=== PATIENT | female | born 1960 | race Caucasian/White ===

== ENCOUNTER → 2017-01-13 | Outpatient (CLI) | payer OTHER | LOC: MC.RAD 11:29 | DX: Z12.31 Encounter for screening mammogram for malignant neoplasm of breast (principal); N64.89 Other specified disorders of breast ==

== ENCOUNTER → 2017-04-20 | Outpatient (CLI) | payer OTHER | LOC: COL.VAS 09:00 | DX: I87.2 Venous insufficiency (chronic) (peripheral) (principal) ==

== ENCOUNTER 2017-08-18 08:56 | Outpatient (CLI) | payer OTHER ==
[2017-08-18] VITALS (10 sets, daily range): BP systolic 101–137; BP diastolic 46–94; PULSE 60–90; TEMP 97.4
[~2017-08-18] VITALS: Ht 167.6 cm; Wt 127.3 kg
[2017-08-18] MEDS ORDERED: PAXIL 30MG30 MG PO (09:28)
[2017-08-18] MEDS ORDERED: PROAIR HFA0.09 MG/AC IH (09:29)
[2017-08-18] MEDS ORDERED: ZYLOPRIM 100MG100 MG PO (09:32)
[2017-08-18] MEDS ORDERED: ULTRAM 50MG TAB50 MG PO (09:32)
[2017-08-18] MEDS ORDERED: XANAX 0.5MG0.5 MG PO (09:33)
[2017-08-18] MEDS ORDERED: ZYRTEC 10MG10 MG PO (09:34)
[2017-08-18] MEDS ORDERED: CRESTOR 10MG10 MG PO (09:35)
[2017-08-18] MEDS ORDERED: GLUCOTROL 5M5 MG/TAB PO (09:36)
[2017-08-18] MEDS ORDERED: HCTZ 25MG TAB25 MG PO (09:40)
[2017-08-18] MEDS ORDERED: NORCO 325 MG-51 TAB PO (09:40)
[2017-08-18] MEDS ORDERED: COZAAR 50MG50 MG/TAB PO (09:41)
[2017-08-18] MEDS ORDERED: SYNTHROID0.112 MG/T PO (09:41)
[2017-08-18] MEDS ORDERED: MAXALT10 MG PO (09:42)
[2017-08-18] MEDS ORDERED: MOBIC 7.5MG7.5 MG PO (09:43)
[2017-08-18] MEDS ORDERED: DOXYCYCLINE HY100 MG PO (15:57)
== END 2017-08-18 16:22 | disposition home or self-care (01) ==
LOC: COL.VAS 08:56
DX: I83.891 Varicose veins of right lower extremity with other complications (principal)
CPT/HCPCS: C1769; C1894; J0171; J2250; J3010; J3370; J7040; J7050; J7120

== ENCOUNTER → 2017-08-25 | Outpatient (CLI) | payer OTHER ==
[~2017-08-25] MED LIST: COZAAR 50MG50 MG/TAB PO; CRESTOR 10MG10 MG PO; DOXYCYCLINE HY100 MG PO; GLUCOTROL 5M5 MG/TAB PO; HCTZ 25MG TAB25 MG PO; MAXALT10 MG PO; MOBIC 7.5MG7.5 MG PO; NORCO 325 MG-51 TAB PO; PAXIL 30MG30 MG PO; PROAIR HFA0.09 MG/AC IH; SYNTHROID0.112 MG/T PO; ULTRAM 50MG TAB50 MG PO; XANAX 0.5MG0.5 MG PO; ZYLOPRIM 100MG100 MG PO; ZYRTEC 10MG10 MG PO
== END ==
LOC: COL.VAS 07:57
DX: I82.4Z1 Acute embolism and thrombosis of unspecified deep veins of right distal lower extremity (principal); Z98.890 Other specified postprocedural states

== ENCOUNTER → 2018-02-26 | Outpatient (CLI) | payer OTHER | LOC: MC.RAD 10:56 | DX: Z12.31 Encounter for screening mammogram for malignant neoplasm of breast (principal) ==

== ENCOUNTER → 2019-03-04 | Outpatient (CLI) | payer OTHER | LOC: MC.RAD 07:54 | DX: Z12.31 Encounter for screening mammogram for malignant neoplasm of breast (principal) ==

== ENCOUNTER → 2020-10-07 | Outpatient (CLI) | payer BC | LOC: MC.RAD 09-15 10:45 | DX: Z12.31 Encounter for screening mammogram for malignant neoplasm of breast (principal) ==

== ENCOUNTER → 2022-03-24 | Outpatient (CLI) | payer BC | LOC: COL.RAD 07:52 | DX: K76.0 Fatty (change of) liver, not elsewhere classified (principal); M47.816 Spondylosis without myelopathy or radiculopathy, lumbar region; M43.16 Spondylolisthesis, lumbar region; R31.29 Other microscopic hematuria; Z90.49 Acquired absence of other specified parts of digestive tract | CPT/HCPCS: Q9967 ==

== ENCOUNTER → 2022-06-08 | Outpatient (CLI) | payer BC ==
[2022-06-08 15:46] LABS: HEMATOCRIT 40.5 % (37.0-47.0); HEMOGLOBIN 13.4 g/dl (12.5-16.0); MEAN CELL VOLUME 86 fl (80.0-100.0); MEAN CORPUSCULAR HEMOGLOBIN 28 pg (27-31); MEAN CORPUSCULAR HGB CONC 33 g/dl (33.0-37.0); MEAN PLATELET VOLUME 10.7 fl (7.4-10.4); PLATELET COUNT 259 K/mm3 (130-400); RED BLOOD COUNT 4.72 M/mm3 (4.10-5.30); REDCELL DISTRIBUTION WIDTH-CV 13.9 % (11.5-14.5)
[2022-06-08 16:00] LABS: ALBUMIN 4.3 gm/dL (3.4-4.8); BILIRUBIN,TOTAL 0.6 mg/dL (0.2-1.2); CALCIUM 9.7 mg/dL (8.4-10.2); CREATININE, serum 0.97 mg/dL (0.57-1.11); POTASSIUM 3.6 mmol/L (3.5-4.5); TOTAL PROTEIN 7.9 gm/dL (6.2-8.1)
[2022-06-08 16:19] LABS: TROPONIN-I 0.011 ng/mL (0.00-0.033); TSH w REFLEX 0.174 uIU/mL (0.350-4.940)
== END ==
LOC: COL.LAB 15:15
PROVIDERS: Nurse Practitioner Family
DX: R07.89 Other chest pain (principal)

== ENCOUNTER → 2022-12-14 | Outpatient (CLI) | payer BC | LOC: MC.RAD 08:13 | DX: N63.25 Unspecified lump in the left breast, overlapping quadrants (principal); N63.21 Unspecified lump in the left breast, upper outer quadrant ==

== ENCOUNTER 2023-08-15 08:00 | Outpatient (RCR) | payer BC ==
[~2023-08-15 08:00] MED LIST changes: +GLUCOTROL10 MG PO; +INSULIN HUMA100 U/ML SQ; +OZEMPIC0.25 MG/01 SQ; +PAXIL40 MG PO
== END 2023-08-17 | disposition home or self-care (01) ==
LOC: WSPT
DX: C50.412 Malignant neoplasm of upper-outer quadrant of left female breast (principal); R31.21 Asymptomatic microscopic hematuria; I89.0 Lymphedema, not elsewhere classified; Z90.12 Acquired absence of left breast and nipple

== ENCOUNTER 2023-08-29 08:37 | Inpatient (IN) | payer BC ==
[~2023-08-29] VITALS: Ht 157.5 cm; Wt 105.0 kg
[2023-10-11] VITALS (14 sets, daily range): BP systolic 109–141; BP diastolic 43–80; PULSE 83–93; TEMP 98–98.6
[2023-10-11] MEDS ORDERED: Rocuronium 50 MG/5 ML Multi-Dose VIAL ONE (08:46)
[2023-10-11] MEDS ORDERED: Succinylcholine PF 100 MG/5 ML SYRINGE/POLY AMP IV ONE (08:46)
[2023-10-11] MEDS ORDERED: Ondansetron 4 MG/2 ML VIAL ONE (08:46)
--- NOTE | 2023-10-11 09:25 | NUR ---
TRACI Engle CRNA IN THE ROOM. INFORMED ACCUCHECK 114. REQUESTS THAT IVF OF LR TO BE INFUSING AND NOT D51/2NS. IVF SWITCHED ORDERED.
[2023-10-11] MEDS ORDERED: LR 1,000 ML IV ONE (09:30)
[2023-10-11] MEDS ORDERED: fentaNYL 50 MCG/ML 2 ML VIAL ONE (09:51)
[2023-10-11] MEDS ORDERED: Midazolam 2 MG/2 ML VIAL ONE (09:52)
[2023-10-11] MEDS ORDERED: D5 1/2 NS 1,000 ML IV SCH (10:00)
[2023-10-11] MEDS ORDERED: Famotidine 20 MG TAB PO SCH (10:00)
[2023-10-11] MEDS ORDERED: CRESTOR20 MG PO (10:02)
[2023-10-11] MEDS ORDERED: LEVEMIR FLEX100 U/ML SQ (10:04)
[2023-10-11] MEDS ORDERED: OZEMPIC2 MG/0.75 SQ (10:05)
[2023-10-11] MEDS ORDERED: ARIMIDEX1 MG PO (10:06)
[2023-10-11] MEDS ORDERED: NEURONTIN300 MG/CAP PO (10:06)
[2023-10-11] MEDS ORDERED: MAG-OX 400400 MG/TAB PO (10:07)
[2023-10-11] MEDS ORDERED: K-DUR 10 MEQ T10 MEQ PO (10:08)
[2023-10-11] MEDS ORDERED: LOMOTIL 0.025 M1 TAB PO (10:09)
[2023-10-11] MEDS ORDERED: ZOFRAN ODT8 MG PO (10:09)
[2023-10-11] MEDS ORDERED: GLUCOPHAGE500 MG/TAB PO (10:11)
[2023-10-11] MEDS ORDERED: HYDROmorphone 2 MG/1 ML VIAL IV PRN (10:15)
[2023-10-11] MEDS ORDERED: Ondansetron 4 MG/2 ML VIAL IV PRN ×2 (10:15→12:00)
[2023-10-11] MEDS ORDERED: fentaNYL 50 MCG/ML 2 ML VIAL IV PRN (10:15)
[2023-10-11] MEDS ORDERED: Albuterol 0.042% Neb Soln 1.25 MG/3 ML UD IH PRN (12:00)
[2023-10-11] MEDS ORDERED: Naloxone 0.4 MG/ML VIAL IV PRN (12:00)
[2023-10-11] MEDS ORDERED: oxyCODONE 5 MG TAB PO PRN (12:00)
[2023-10-11] MEDS ORDERED: Diphenoxylate/Atropine 2.5-0.025 MG TAB PO PRN (12:00)
[2023-10-11] MEDS ORDERED: Dextrose 50% Water 25 GM/50 ML SYRINGE IV PRN (12:45)
[2023-10-11] MEDS ORDERED: Dextrose (Glucose) 15 GM (4 x 3.75 GM) Chewable TABLET PACK PO PRN (12:45)
[2023-10-11] MEDS ORDERED: Glucagon 1 MG VIAL IM PRN (12:45)
--- NOTE | 2023-10-11 12:45 | NUR ---
pt admitted to room from pacu, at bedside. vss, pt on 2L nasal cannula. pt reports some discomfort in her left ear. neck dressing is cdi. scds to ble. fluids infusing into right wrist IV. pt has a left arm restriction in place. pt tolerating ice chips. oriented pt to room. med rec and admission assessment complete. pt denies needs at this time. call light in reach.
[2023-10-11] MEDS ORDERED: Acetaminophen 500 MG TAB PO SCH (12:47)
[2023-10-11] MEDS ORDERED: glipiZIDE 5 MG TAB PO SCH (16:30)
--- NOTE | 2023-10-11 20:56 | NUR ---
Patient assessed around 2019. Alert and oriented, and able to make needs known. Complained of level 7 pain to neck. Given PRN Roxicodone per orders. Tolerating PO fluids well. Peripheral INT to right wrist saline locked. Denies SOB and dyspnea. LS CTA. brought in home BIPAP. RT notified and set it up for patient. Dressing to neck CDI. Ice to area. HOB elevated. Suture removal kit in room. Did ambuate to bathroom, gait slow, but steady. Voices no questions, needs, or concerns at this time. In bed with call light within reach.
[2023-10-11] MEDS ORDERED: Meloxicam 7.5 MG TAB PO SCH (21:00)
[2023-10-11] MEDS ORDERED: Losartan 50 MG TAB PO SCH (21:00)
[2023-10-11] MEDS ORDERED: Rosuvastatin 20 MG **** subs to Atorvastatin 40 MG PO SCH (21:00)
[2023-10-11] MEDS ORDERED: Atorvastatin 40 MG TAB PO SCH (21:00)
[2023-10-11] MEDS ORDERED: Gabapentin 300 MG CAP PO SCH (21:00)
[2023-10-12] VITALS (7 sets, daily range): BP systolic 106–143; BP diastolic 69–76; PULSE 72–79; TEMP 97.8–98.2
--- NOTE | 2023-10-12 03:30 | NUR ---
RT set up BIPAP for patient. Did not require any further PRN pain medication this shift. Report given to oncoming nurse at 0330.
[2023-10-12] MEDS ORDERED: Magnesium Oxide 400 MG TAB PO SCH (09:00)
[2023-10-12] MEDS ORDERED: Allopurinol 100 MG TAB PO SCH (09:00)
[2023-10-12] MEDS ORDERED: PARoxetine HCL 10 MG TABLET PO SCH (09:00)
--- NOTE | 2023-10-12 10:13 | NUR ---
PT LAYING IN BED, ALERT AND ORIENTEDX4. RATED PAIN 7/10 ON THE KNECK. GAVE PAIN PILL AND PAIN WENT DOWN TO 4/10. PT IS TALKING AND SWALLOWING NORMALLY. KEEPING ICE PACK ON KNECK. ASSESSED AND GAVE MORNING MEDS. CALL LIGHT WITHIN REACH.
--- NOTE | 2023-10-12 10:45 | NUR ---
Banking Specialist met with patient to discuss discharge planning. Patient lives in [place] with her , Florin (ph#[phone]) and sees Dr. Rubio for primary care. Patient obtains medications from [facility] with no difficulties and has a home bipap at bedside. Patient works as a therapist at [employer] and is independent with ADLS. Patient plans to return home at time of discharge. Patient is intersted in completing DPOA-HC while here. SW assisted patient in completing form and patient chose to designate her spouse, Florin. Patient did not want to designate an alternate. HAYDER and [employer]AY[employer] Student, Desiree provided witness signature. SW placed copy in chart, then original and copies were provided to patient. Discharge Plan: Home
[2023-10-12] MEDS ORDERED: GLUCOPHAGE XR500 M1 PO (11:02)
[2023-10-12] MEDS ORDERED: OSCAL 500 TAB500 MG PO (11:13)
[2023-10-12] MEDS ORDERED: VITAMIN D31000 IU PO (11:14)
--- NOTE | 2023-10-12 14:22 | NUR ---
D: Initial visit: [employer] stopped by room on rounds. Pt was resting and content. A: Pt was having lunch. [employer] established that pt had spent time close to his hometown and a good discussion was had. Pt has no needs right now. P: [employer] informed pt that if she needed anything to let her nurse know. [employer] will follow up as needed.
[2023-10-12] MEDS ORDERED: ROXICODONE 55 MG/TAB PO (16:47)
[2023-10-12] MEDS ORDERED: TYLENOL 500MG500 MG PO (16:47)
--- NOTE | 2023-10-12 17:41 | NUR ---
PT HAD DISCHARGE ORDERS. TOOK PT IV OUT. WENT OVER DISCHARGE PAPERWORK WITH PT. THIS NURSE ESCORTED PT OUT IN WHEELCHAIR.
== END 2023-10-12 17:30 | disposition home or self-care (01) | DRG 627 ==
LOC: SURG 10-04 07:30 → INPTSU 10-11 08:20 → SURG 10-11 10:30
PROVIDERS: ADMIT Surgery
PROC: 0GTG0ZZ Resection of Left Thyroid Gland Lobe, Open Approach (ICD-10-PCS; principal; 2023-10-11 10:30)
DX: C73 Malignant neoplasm of thyroid gland (principal); E04.1 Nontoxic single thyroid nodule; I10 Essential (primary) hypertension; G47.33 Obstructive sleep apnea (adult) (pediatric); M19.90 Unspecified osteoarthritis, unspecified site; E11.9 Type 2 diabetes mellitus without complications; M10.9 Gout, unspecified; E78.5 Hyperlipidemia, unspecified; Z23 Encounter for immunization; Z88.3 Allergy status to other anti-infective agents; Z88.0 Allergy status to penicillin; Z88.8 Allergy status to other drugs, medicaments and biological substances; Z99.89 Dependence on other enabling machines and devices; Z85.3 Personal history of malignant neoplasm of breast; Z79.890 Hormone replacement therapy; Z79.899 Other long term (current) drug therapy; Z79.4 Long term (current) use of insulin; Z90.49 Acquired absence of other specified parts of digestive tract; Z90.12 Acquired absence of left breast and nipple; Z17.0 Estrogen receptor positive status [ER+]
CPT/HCPCS: J0330; J1170; J1815; J2250; J2405; J2704; J3010; J7120